=== PATIENT | male | born 1960 | race Caucasian/White ===

== ENCOUNTER → 2021-02-19 14:24 | Outpatient (CLI) | payer OTHER, SELFPAY ==
[2021-02-19 17:07] LABS: COVID19 -Nasal RAPID Negative (Negative)
== END ==
PROVIDERS: Visit Provider Physician Assistant
DX: Z01.812 Encounter for preprocedural laboratory examination (principal); Z20.822 Contact with and (suspected) exposure to COVID-19
CPT/HCPCS: 87635

== ENCOUNTER 2021-02-21 07:21 | Day surgery (SDC) | payer OTHER, SELFPAY ==
--- NOTE | 2021-02-20 19:31 | PM.PREOP ---
Pre-operative Note COVID-19 COVID-19 status: Negative Interval Note History & Physical reviewed/Exam performed by Physician: Yes Changes to H&P: No
--- NOTE | 2021-02-21 07:01 | PM.OP.1 ---
Operative Date/Time/Diagnoses Date of procedure: 02/21/21 Time of procedure: 08:45 Procedure & Clinicians Procedure: Preoperative diagnoses: 1. Right complex surgery with use of capsular dye and MiLoop. 2. Mature or advanced nuclear sclerotic and cortical cataract with poor visibility of the anterior capsule increasing surgical risks of complications. 3. Heart arrhythmia 4. Hypertension Postoperative diagnoses: 1. Complex surgery with use of capsular dye. 2. Placement of a posterior chamber intraocular lens implant. Surgeon: Karlene Hoang MD Complications: none Specimen: None Implant: [id number] Blood loss: None Anesthesia: Retrobulbar with monitored standby. Description of procedure: Dictated by: Karlene Hoang MD Post operative diagnoses: 1. Right cataract removed with use of capsular dye. 2. Placement of a posterior chamber intraocular lens. Procedure: Phacoemulsification with posterior chamber intraocular lens implant Surgeon: Karlene Hoang MD Blood loss: None Anesthesia: Retrobulbar with monitored standby Description of procedure: Patient has presented with decreased vision due to cataract which is affecting activities of daily living distance and near. He has had a rapid developing cataract with an 8 diopter myopic shift and is unable to see for any activities of daily living with this eye he The patient wants surgery to improve vision. Capsular dye and possible Miloop will be needed for this surgery. He understands the extra risk of surgery given the COVID-19 epidemic and wishes to proceed. He was tested active virus negative prior to the procedure. The patient was taken to the operating room and given IV sedation. A retrobulbar block consisting of 6 cc of 2% xylocaine without epinephrine mixed half and half with 0.5% Marcaine with 1 cc of hyaluronidase added is placed between the medial and lateral 1/3 of the inferior orbital rim. Lid akinesia is obtain with 1% xylocaine with epinephrine infiltrated along the lid margin. The eye is manually massaged for 30 sec, prepped using Betadine solution, and draped in the usual sterile fashion. Temporal approach was made, a 1 mm side-port incision was performed 90 degrees from the planned corneal wound. Phenylephrine 1.5% mixed with 1% xylocaine 0.2 cc was placed into the anterior chamber. An air bubble was placed and Visudyne dye was placed to improve visibility of the anterior capsule. The dye was irrigated out to reduce bubbles. Viscoat followed by Healon was then placed. A 2.6 mm clear incision with a 2.6 mm blade was placed. A 360 degree capsulorrhexis style capsulotomy was then performed with a cystitome needle on a Healon. Hydrodelineation and hydrodissection were performed. The phacoemulsification unit is introduced, and sculpting used to groove the central lens. As I was able to chop wood a Miloop was not used but extra viscoelastic was.. It is then removed in chopping mode. Epi nucleus is removed with epinuclear mode and irrigation aspiration was used to remove the peripheral cortex. The posterior capsule is polished. The intraocular lens is selected, inspected, power confirmed, and placed in the posterior chamber. The pupil was constricted with Miostat. The wound was stromally hydrated and tested for leaks, there was none and was left sutureless. Vigamox 0.1 cc was placed into the anterior chamber. Kenalog 0.2 cc was placed in the superior subconjunctival space. A drop of antibiotic and was placed and the eye was patched and shielded. The patient was stable and returned to the recovery room in excellent condition. Dictated by: Karlene Hoang MD Copy to: [facility] Same procedure as scheduled: Yes
[2021-02-21 07:39] VITALS: BP 164/90; PULSE 71; RESP 14; TEMP 36.7; O2SAT 97; BMI 28.8
[2021-02-21] MEDS: PROPARACAINE 0.5% OPHTH SOL 2 DROPS EYE-OP (07:46)
[2021-02-21] MEDS: CATARACT EYE COMPOUND (10 DROPS/SYRINGE) 3 DROPS EYE-OP ×3 (07:48→07:58)
[2021-02-21] MEDS: LIDOCAINE 2% 4 ML, BUPIVACAINE 0.5% (PF) 4 ML, HYALURONIDASE 150 UNIT INJ (08:54)
[2021-02-21] MEDS: PHENYLEPHRINE/LIDOCAINE VIAL (OR) 0.2 ML EYE-OP (09:05)
[2021-02-21] MEDS: MOXIFLOXACIN INJ 4 MG/0.8 ML VIAL 0.5 MG EYE-OP (09:05)
[2021-02-21] MEDS: TRIAMCINOLONE 50 MG/5 ML VIAL INJ (09:06)
[2021-02-21] MEDS: ERYTHROMYCIN OPHTH 1 GM OINT 1 APPLIC EYE-RIGHT (09:06)
[2021-02-21] MEDS: CHONDROIDTIN/SOD HYALURONATE 1.05 ML SYRINGE INTRAOCULA (09:06)
[2021-02-21] MEDS: HYALURONATE SODIUM 10 MG/ML SYRINGE INJ (09:06)
[2021-02-21] MEDS: TRYPAN BLUE 0.5 ML SYRINGE INJ (09:07)
[2021-02-21] MEDS: BALANCED SALT IRRIG SOLN NO.2 500 ML, EPINEPHrine 1 MG IRR (09:07)
[2021-02-21 09:40] VITALS: BP 159/87; PULSE 59; RESP 16; TEMP 36.4; O2SAT 100
--- NOTE | 2021-02-21 15:27 | SUR.PHASEII ---
Late entry: pt ready to go, called pt left unit in stable condition.
== END 2021-02-21 13:19 | disposition home or self-care (01) ==
LOC: OR 07:26
PROVIDERS: Referring Provider Ophthalmology; Visit Provider Ophthalmology
PROC: (CPT 66984; principal; 2021-02-21 08:45)
DX: H25.11 Age-related nuclear cataract, right eye (principal); H25.011 Cortical age-related cataract, right eye; I10 Essential (primary) hypertension; I49.9 Cardiac arrhythmia, unspecified
CPT/HCPCS: 66984; J0171; J2250; J3010; J3301; J3470